=== PATIENT | female | born 1985 | race African-American/Black ===

== ENCOUNTER 2020-01-04 10:43 | Outpatient (CLI) | payer OTHER ==
--- NOTE | 2020-01-04 11:17 | RAD ---
RIGHT SHOULDER 3 VIEWS:: Date: 01/04/2020 HISTORY: Shoulder tendinitis. FINDINGS: AC and glenohumeral joints appear normal. I do not see any signs of calcific tendinitis. IMPRESSION: Unremarkable right shoulder. POS: [facility]
== END 2020-01-04 10:44 | disposition home or self-care (01) ==
LOC: BICRAD 10:43
PROVIDERS: ATTEND Family Medicine
DX: M75.81 Other shoulder lesions, right shoulder (principal)

== ENCOUNTER 2020-04-19 09:07 | Emergency (ER) | payer OTHER ==
[2020-04-19] MEDS ORDERED: hydrOXYzine 25 MG TAB ONE (09:42)
== END 2020-04-19 11:02 | disposition home or self-care (01) ==
LOC: ERS 09:07
DX: F45.8 Other somatoform disorders (principal); F41.9 Anxiety disorder, unspecified; I10 Essential (primary) hypertension
CPT/HCPCS: 36415; 84443; 99283